=== PATIENT | male | born 1970 | race Caucasian/White ===

== ENCOUNTER 2019-10-31 16:56 | Inpatient (IN) ==
[2019-10-31] MEDS ORDERED: Morphine 4 MG/ML VIAL (1 ml) IV ONE (17:35)
[2019-10-31 18:31] LABS: Urine Color Amber
[2019-10-31 18:32] LABS: Hematocrit 45 % (42-52); Hemoglobin 15.4 g/dL (14.0-18.0); Mean Corpuscular HGB Conc 35 g/dL (31-36); Mean Corpuscular Hemoglobin 32 pg (27-31); Mean Corpuscular Volume 93 fL (80-94); Mean Platelet Volume 8.9 fL (7.4-10.4); Platelet Count 204 10^3/uL (150-450); Red Blood Count 4.81 10^6 /uL (4.18-5.48); Red Cell Distribution Width 13 % (10-15); White Blood Count 4.7 10^3/uL (3.5-10.8)
[2019-10-31 18:32] LABS: Urine Appearance Clear; Urine Bilirubin 2+ (Negative); Urine Ketones Negative (Negative); Urine Protein Negative (Negative); Urine Specific Gravity 1.021 (1.010-1.030); Urine Urobilinogen Positive (Negative)
[2019-10-31 18:33] LABS: Urine Blood Trace (Negative); Urine Glucose Negative (Negative); Urine Nitrite Negative (Negative); Urine Red Blood Cell Trace(0-2/hpf) (Absent); Urine White Blood Cell Trace(0-5/hpf) (Absent)
[2019-10-31 18:33] LABS: ABS Eosinophils 0.1 10^3/ul (0-0.6); ABS Lymphocytes 0.5 10^3/ul (1.0-4.8); ABS Monocytes 0.3 10^3/ul (0-0.8); ABS Neutrophils 3.7 10^3/ul (1.5-7.7); ABS Nucleated RBC 0.1 10^3/ul; Eosinophil % 1.6 %; Lymphocyte % 11.8 %
[2019-10-31 18:34] LABS: Nucleated Red Blood Cells % 3.7
[2019-10-31 19:04] LABS: Urine Bacteria Absent (Absent)
[2019-10-31 19:09] LABS: Albumin 4.3 g/dL (3.2-5.2); Calcium 9.5 mg/dL (8.6-10.3); Potassium 3.9 mmol/L (3.5-5.0); Total Bilirubin 5.3 mg/dL (0.2-1.0)
[2019-10-31 19:15] LABS: Albumin/Globulin Ratio 1.4 (1-3); BUN/Creatinine Ratio 15.8 (8-20); C Reactive Protein 4.78 mg/L (<8.01); EGFR Non-African American 84.3 (>60); Total Protein 7.3 g/dL (6.4-8.9)
[2019-10-31] MEDS ORDERED: NS 0.9% 1000 ml BAG 1,000 ML IV ONE (19:23)
[2019-10-31] MEDS ORDERED: Ondansetron 4 mg VIAL 2 MG/ML 2 ml VIAL IV ONE (19:29)
[2019-10-31] MEDS ORDERED: Ondansetron 4 mg VIAL 2 MG/ML 2 ml VIAL IV PRN (20:44)
[2019-10-31] MEDS ORDERED: Senna TAB 8.6 mg TAB PO PRN (20:44)
[2019-10-31] MEDS ORDERED: Al Hydrox/Mg Hydrox/Simet LIQ 30 ML UDC PO PRN (20:44)
[2019-10-31] MEDS ORDERED: Morphine 2 MG/ML SYRINGE IV PRN (20:44)
[2019-10-31] MEDS ORDERED: Lactated Ringers 1000 ml BAG 1,000 ML IV SCH (21:00)
[2019-10-31] MEDS ORDERED: Piperacillin/Tazobac ADVAN 3.375 GM in NS 0.9% 100 ml BAG 100 ML IVPB ONE (21:23)
[2019-10-31] MEDS ORDERED: Zosyn per Pharmacy NOTE FOLLOW UP SCH (22:00)
[2019-10-31] MEDS: NS 0.9% 1000 ml BAG 1,000 ML IV SCH (23:18)
[2019-11-01] MEDS: ZOSYN 3.375 GM Q8H per EXTENDED INFUSION IV SCH ×2 (01:51→09:50)
[2019-11-01 04:59] LABS: ABS Eosinophils 0.1 10^3/ul (0-0.6); ABS Lymphocytes 0.9 10^3/ul (1.0-4.8); ABS Monocytes 0.4 10^3/ul (0-0.8); ABS Neutrophils 2.7 10^3/ul (1.5-7.7); Hematocrit 39 % (42-52); Hemoglobin 13.8 g/dL (14.0-18.0); Mean Corpuscular HGB Conc 35 g/dL (31-36); Mean Corpuscular Hemoglobin 33 pg (27-31); Mean Corpuscular Volume 93 fL (80-94); Mean Platelet Volume 8.6 fL (7.4-10.4); Nucleated Red Blood Cells % 0.1; Platelet Count 165 10^3/uL (150-450); Red Blood Count 4.22 10^6 /uL (4.18-5.48); Red Cell Distribution Width 13 % (10-15); White Blood Count 4.1 10^3/uL (3.5-10.8)
[2019-11-01 05:17] LABS: Albumin 3.5 g/dL (3.2-5.2); Albumin/Globulin Ratio 1.4 (1-3); BUN/Creatinine Ratio 15.3 (8-20); Calcium 8.4 mg/dL (8.6-10.3); EGFR African American 115.9 (>60); EGFR Non-African American 95.8 (>60); Globulin 2.5 g/dL (2-4); Indirect Bilirubin 1.4 mg/dL (0.3-1.0); Potassium 4.1 mmol/L (3.5-5.0)
[2019-11-01] MEDS: NS 0.9% 1000 ml BAG 1,000 ML IV SCH (05:58)
[2019-11-01] MEDS ORDERED: Buffered Lidocaine 1% SYRIN 1 ml INTRADERM ONE (11:54)
[2019-11-01] MEDS ORDERED: Acetaminophen IV 1 GM/100ML 1,000 MG/100 ML VIAL IVPB ONE (11:54)
[2019-11-01] MEDS ORDERED: Lactated Ringers 1000 ml BAG 1,000 ML IV SCH (12:00)
[2019-11-01] MEDS ORDERED: fentaNYL 250 mcg/5 ml 50 MCG/ML 5 ml VIAL (250 MCG) ONE (14:39)
[2019-11-01] MEDS ORDERED: Midazolam 2 mg/2 ml VIAL 1 mg/ml 2 ml VIAL (2 mg) ONE (14:40)
[2019-11-01] MEDS ORDERED: Propofol 10 MG/ML 20 ML BTL ONE (14:41)
[2019-11-01] MEDS ORDERED: Rocuronium 50 mg VIAL 10 mg/ml 5 ml VIAL (50 mg) ONE (14:42)
[2019-11-01] MEDS ORDERED: Bupivacaine 0.25% EPI 200,000 30 ML SDV ONE (14:42)
[2019-11-01] MEDS ORDERED: Lidocaine 2% PF 5 ML VIAL ONE (14:43)
[2019-11-01] MEDS ORDERED: Bupivacaine 0.25% SDV 30 ML ONE (14:44)
[2019-11-01] MEDS ORDERED: Dexamethasone IV 4 MG/ML VIAL 1 ml VIAL ONE (15:03)
[2019-11-01] MEDS ORDERED: Ondansetron 4 mg VIAL 2 MG/ML 2 ml VIAL ONE (15:03)
[2019-11-01] MEDS ORDERED: Acetaminophen IV 1 GM/100ML 100 ML ONE (15:12)
[2019-11-01] MEDS ORDERED: fentaNYL 100 mcg/2 ml 50 MCG/ML VIAL IV PRN (15:14)
[2019-11-01] MEDS ORDERED: Naloxone 0.4 mg VIAL 0.4 mg/ml 1 ml VIAL IV PRN (15:14)
[2019-11-01] MEDS ORDERED: HYDROmorphone 1 MG/1 ML SYRINGE IV PRN (15:14)
[2019-11-01] MEDS ORDERED: fentaNYL 100 mcg/2 ml 50 MCG/ML VIAL ONE (17:23)
[2019-11-01 18:45] VITALS: BP 124/77
== END 2019-11-01 19:15 | disposition home or self-care (01) | DRG 419 ==
LOC: ED 16:56 → SSU 21:34
PROVIDERS: ADMIT Pediatrics; ATTEND Surgery Surgical Critical Care